=== PATIENT | male | born 1955 | race Hispanic/Latino ===

== ENCOUNTER 2019-01-16 16:12 | Inpatient (IN) | payer OTHER ==
[~2019-01-16] VITALS: Ht 170.2 cm; Wt 63.1 kg
[2019-01-16 16:50] LABS: BASOPHILS % (AUTO) 0.8 % (0.0-5.0); EOSINOPHILS % (AUTO) 3.6 % (0.0-8.0); HEMATOCRIT 40.6 % (42-54); LYMPHOCYTES % (AUTO) 38.5 % (21.0-51.0); MEAN CORPUSCULAR HEMOGLOBIN 32.6 pg (27.0-33.0); MEAN CORPUSCULAR HGB CONC 33.5 g/dL (32.0-36.0); MEAN CORPUSCULAR VOLUME 97.1 fL (79-99); NEUTROPHILS % (AUTO) 51.1 % (40.0-77.0); NUCLEATED RED BLOOD CELLS 0.1 % (0.0-0.19); PLATELET COUNT (AUTO) 124 K/uL (130-400); RED BLOOD CELL COUNT(AUTO) 4.18 MIL/uL (4.50-6.20); RED CELL DISTRIBUTION WIDTH 13.2 % (11.0-15.5); WHITE BLOOD COUNT (AUTO) 8.6 K/uL (4.8-10.8)
[2019-01-16] MEDS ORDERED: ASPIRIN 325 MG TABLET ONE (16:54)
[2019-01-16] MEDS ORDERED: SODIUM CHLORIDE 0.9% 1000ML 1,000 ML IV ONE (16:54)
[2019-01-16 17:02] LABS: CREATININE 1.1 mg/dL (0.5-1.5); POTASSIUM 3.8 mmol/L (3.5-5.1)
[2019-01-16 17:06] LABS: ALBUMIN 4.2 g/dL (3.5-5.0); BILIRUBIN,TOTAL 0.5 mg/dL (0.2-1.0); TOTAL PROTEIN, SERUM 8.4 g/dL (6.0-8.3)
[2019-01-16 17:13] LABS: B-TYPE NATRIURETIC PEPTIDE 31 pg/mL (0-100)
[2019-01-16 17:43] LABS: APPEARANCE,URINE Clear (CLEAR); BILIRUBIN,URINE Negative (NEGATIVE); COLOR,URINE Dark Yellow (YELLOW); GLUCOSE, URINE (UA) Negative (NEGATIVE); KETONES,URINE Trace mg/dL (NEGATIVE); LEUKOCYTE ESTERASE ,URINE Negative (NEGATIVE); NITRATE,URINE Negative (NEGATIVE); OCCULT BLOOD,URINE Negative (NEGATIVE); PROTEIN,URINE Trace mg/dL (NEGATIVE)
[2019-01-16 17:56] LABS: BACTERIA,URINE Few /HPF (None Seen); MUCUS,URINE Few LPF (None Seen); RBC,URINE 0-1 /HPF (0-1); SQUAMOUS EPITHELIAL CELL,UR Rare /HPF (0-2)
[2019-01-16] MEDS ORDERED: HYDRALAZINE HCL 20 MG/ML VIAL IV PRN (19:45)
[2019-01-16] MEDS ORDERED: ACETAMINOPHEN 325 MG TAB PO PRN ×2 (19:45)
[2019-01-16] MEDS ORDERED: MORPHINE SULFATE 2 MG/ML 1ML SYG IV PRN (19:45)
[2019-01-16] MEDS ORDERED: MORPHINE SULFATE 4 MG/1ML SYG IV PRN (19:45)
[2019-01-16] MEDS ORDERED: ONDANSETRON HCL 4 MG/2 ML VIAL IV PRN (19:45)
[2019-01-16 21:00] VITALS: BP 113/56
[2019-01-16] MEDS: ENOXAPARIN SODIUM 30 MG/0.3 ML SQ SCH (21:00)
[2019-01-16] MEDS ORDERED: GLIM4TAB3 PO (21:05)
[2019-01-16] MEDS ORDERED: CHOL100018 PO (21:05)
[2019-01-16] MEDS ORDERED: LISI2.5T2 PO (21:07)
[2019-01-16] MEDS ORDERED: ATOR20TA65 PO (21:07)
[2019-01-16 23:40] LABS: TROPONIN I 0.04 ng/mL (0.00-0.06)
[2019-01-17] VITALS (7 sets, daily range): BP systolic 116–138; BP diastolic 58–74
[2019-01-17 05:07] LABS: TROPONIN I 0.04 ng/mL (0.00-0.06)
[2019-01-17] MEDS: FAMOTIDINE/PF 20 MG/2 ML VIAL IV SCH ×3 (09:00→22:08)
[2019-01-17] MEDS: METOPROLOL TARTRATE 25 MG TAB PO SCH ×3 (09:00→22:08)
[2019-01-17] MEDS: ASPIRIN 325 MG TABLET PO SCH (10:39)
[2019-01-17] MEDS: ATORVASTATIN CALCIUM 20 MG TABLET PO SCH (10:39)
[2019-01-17] MEDS: ENOXAPARIN SODIUM 30 MG/0.3 ML SQ SCH ×2 (11:24→22:15)
[2019-01-17 11:41] LABS: TROPONIN I 0.04 ng/mL (0.00-0.06)
[2019-01-17] MEDS ORDERED: GLUCAGON 1MG KIT 1 MG ML IM PRN (16:00)
[2019-01-17] MEDS ORDERED: DEXTROSE 50%-WATER 50 ML DISP.SYRIN IV PRN (16:00)
[2019-01-17] MEDS: INSULIN HUMULIN R 100 UNIT/ML 3ML SQ SCH ×2 (16:30→21:00)
[2019-01-18 03:05] VITALS: BP 123/68
[2019-01-18 05:47] LABS: BASOPHILS % (AUTO) 0.6 % (0.0-5.0); EOSINOPHILS % (AUTO) 3.9 % (0.0-8.0); HEMATOCRIT 36.7 % (42-54); LYMPHOCYTES % (AUTO) 36.1 % (21.0-51.0); MEAN CORPUSCULAR HEMOGLOBIN 33.1 pg (27.0-33.0); MEAN CORPUSCULAR VOLUME 97.3 fL (79-99); MONOCYTES % (AUTO) 6.8 % (3.0-13.0); NEUTROPHILS % (AUTO) 52.6 % (40.0-77.0); NUCLEATED RED BLOOD CELLS 0.1 % (0.0-0.19); PLATELET COUNT (AUTO) 113 K/uL (130-400); RED BLOOD CELL COUNT(AUTO) 3.77 MIL/uL (4.50-6.20); WHITE BLOOD COUNT (AUTO) 7.2 K/uL (4.8-10.8)
[2019-01-18 05:57] LABS: CREATININE 1.1 mg/dL (0.5-1.5); POTASSIUM 4.8 mmol/L (3.5-5.1)
[2019-01-18] MEDS: INSULIN HUMULIN R 100 UNIT/ML 3ML SQ SCH ×4 (07:30→21:00)
[2019-01-18 08:00] VITALS: BP 132/73
[2019-01-18] MEDS: METOPROLOL TARTRATE 25 MG TAB PO SCH (08:30)
[2019-01-18] MEDS: ASPIRIN 325 MG TABLET PO SCH (08:38)
[2019-01-18] MEDS: ATORVASTATIN CALCIUM 20 MG TABLET PO SCH (08:39)
[2019-01-18] MEDS: FAMOTIDINE/PF 20 MG/2 ML VIAL IV SCH ×2 (08:40→22:03)
[2019-01-18 11:28] VITALS: BP 111/62
[2019-01-18] MEDS ORDERED: DICL100G27 TP (11:33)
[2019-01-18] MEDS ORDERED: METF-446 PO (11:33)
[2019-01-18] MEDS ORDERED: NAPR-1023 PO (11:33)
[2019-01-18] MEDS ORDERED: CYAN100084 PO (11:33)
[2019-01-18 16:00] VITALS: BP 130/71
[2019-01-18 21:32] VITALS: BP 125/65
[2019-01-18 23:00] VITALS: BP 132/68
[2019-01-19 03:00] VITALS: BP 119/62
[2019-01-19 06:22] LABS: BASOPHILS % (AUTO) 0.7 % (0.0-5.0); EOSINOPHILS % (AUTO) 3.6 % (0.0-8.0); HEMATOCRIT 37.7 % (42-54); LYMPHOCYTES % (AUTO) 33.6 % (21.0-51.0); MEAN CORPUSCULAR HEMOGLOBIN 32.1 pg (27.0-33.0); MEAN CORPUSCULAR HGB CONC 33.3 g/dL (32.0-36.0); MEAN CORPUSCULAR VOLUME 96.4 fL (79-99); MONOCYTES % (AUTO) 6.5 % (3.0-13.0); NEUTROPHILS % (AUTO) 55.6 % (40.0-77.0); PLATELET COUNT (AUTO) 128 K/uL (130-400); RED BLOOD CELL COUNT(AUTO) 3.92 MIL/uL (4.50-6.20); WHITE BLOOD COUNT (AUTO) 7.2 K/uL (4.8-10.8)
[2019-01-19 06:32] LABS: CREATININE 1.1 mg/dL (0.5-1.5); POTASSIUM 4.2 mmol/L (3.5-5.1)
[2019-01-19] MEDS: INSULIN HUMULIN R 100 UNIT/ML 3ML SQ SCH ×4 (07:30→21:19)
[2019-01-19 08:00] VITALS: BP 127/67
--- NOTE | 2019-01-19 08:08 | NUR ---
cm note pt resides athome with spouse, independent with ambulation and adls. no dme. dc plan is back to [place] home setting [place]. no dc needs. Addendum: 01/19/19 at 0837 by CONNIE GONZALEZ CM Amended: Links added.
[2019-01-19] MEDS: ENOXAPARIN SODIUM 30 MG/0.3 ML SQ SCH (08:38)
[2019-01-19] MEDS: ASPIRIN 325 MG TABLET PO SCH (08:39)
[2019-01-19] MEDS: FAMOTIDINE/PF 20 MG/2 ML VIAL IV SCH ×2 (08:39→20:04)
[2019-01-19] MEDS: ATORVASTATIN CALCIUM 20 MG TABLET PO SCH ×2 (08:39→20:04)
[2019-01-19] MEDS ORDERED: **HM** DICLOFENAC GEL TP PRN (09:00)
[2019-01-19 11:59] VITALS: BP 113/61
[2019-01-19 16:00] VITALS: BP 123/74
--- NOTE | 2019-01-19 18:20 | NUR ---
Recieved report from [facility] pt awake and alert, Debridement Open fx of Right hand 2,3,4th digit with skin graft right forearm done by Dr Garcia. Wound/Grafts to be left alone. /u with Dr. Garcia in 1 week. Addendum: 01/20/19 at 2004 by KENYON BALDWIN RN RN Error wrong pt
--- NOTE | 2019-01-19 18:35 | NUR ---
patient back from OR s/p debridement open fracture right hand 2,3,4 digit with skin graft. Alert and awake. Skin graft taken from right forearm. wound in place with Dermabond and sutures. Patient states moderate pain to right hand. IV patent. patient in sling with right arm elevated with pillow. Call light placed within reach, bed placed in lowest position and reoriented to room. Addendum: 01/20/19 at 2002 by KENYON BALDWIN RN RN ERROR WRONG PT
[2019-01-19 19:00] VITALS: BP 144/67
--- NOTE | 2019-01-19 20:05 | NUR ---
MEDS PT VISITING WITH FAMILY. DUE MEDS ADMINISTERED, TOLERATED WELL. INSTRUCTED TO BE NPO POST MIDNIGHT FOR STRESS TEST IN AM. PT VERBALIZES UNDERSTANDING. PT FURTHER CLAIMS THAT HE JUST TOOK A SHOWER IN THE EARLY EVENING BEFORE CHANGE OF SHIFT. CALL LIGHT WITHIN REACH. WILL MONITOR PT.
[2019-01-20] VITALS: BP 122/63
--- NOTE | 2019-01-20 02:00 | NUR ---
ROUNDS PT FAIRLY ASLEEP WITH RESPIRATIONS EVEN AND UNLABORED. NO NOTED DISTRESS. KEPT UNDISTURBED FOR NOW. WILL CONTINUE TO MONITOR. CALL LIGHT WITHIN REACH.
[2019-01-20 04:00] VITALS: BP 115/64
[2019-01-20] MEDS ORDERED: LISINOPRIL 2.5 MG TABLET ONE (05:56)
[2019-01-20] MEDS ORDERED: ASPIRIN 81MG TAB.CHEW ONE (05:57)
--- NOTE | 2019-01-20 06:04 | NUR ---
MEDS AWAKENED PT FOR MEDS. ASA AND LISINOPRIL DOSES ADMINISTERED PER PA ORDER, WITH SIPS OF WATER. KEPT NPO. FOR MORE CARE.
[2019-01-20] MEDS: INSULIN HUMULIN R 100 UNIT/ML 3ML SQ SCH ×4 (06:18→21:14)
[2019-01-20] MEDS: LISINOPRIL 2.5 MG TABLET PO SCH (07:18)
[2019-01-20] MEDS: ASPIRIN 81MG TAB.CHEW PO SCH (07:19)
[2019-01-20 08:00] VITALS: BP 130/68
[2019-01-20] MEDS: FAMOTIDINE/PF 20 MG/2 ML VIAL IV SCH ×2 (09:00→21:03)
[2019-01-20] MEDS: ENOXAPARIN SODIUM 30 MG/0.3 ML SQ SCH (09:00)
[2019-01-20] MEDS ORDERED: REGADENOSON 0.4 MG/5 ML PF SYG IVP SCH (09:30)
--- NOTE | 2019-01-20 11:45 | NUR ---
Pt returned from [facility]
[2019-01-20 12:00] VITALS: BP 124/88
[2019-01-20 16:00] VITALS: BP 134/74
[2019-01-20 19:00] VITALS: BP 140/73
[2019-01-20] MEDS: ATORVASTATIN CALCIUM 20 MG TABLET PO SCH (21:03)
--- NOTE | 2019-01-20 21:05 | NUR ---
MEDS SHIFT ASSESSMENT DONE, PLEASE REFER TO CHART. DUE MEDS ADMINISTERED, TOLERATED WELL. KEPT RESTED AND COMFORTABLE FOR SLEEP. CALL LIGHT WITHIN REACH. WILL MONITOR PT. Addendum: 01/20/19 at 2345 by ALEXEI PATTERSON RN RN Amended: Links added.
--- NOTE | 2019-01-20 23:31 | NUR ---
SECURITY SECURITY IN TO RETURN PT'S MONEY FROM [facility]. MONEY COUNTED AND [id number] SECURITY EXPLAINED TO PT THAT STAFF IS NOT RESPONSIBLE FOR MONEY ONCE IT IS RELEASED TO HIM. PT VERBALIZES UNDERSTANDING. BALL FRINGE MACHINE OPERATOR WITNESSED RETURN FORM.
[2019-01-21] VITALS: BP 114/56
--- NOTE | 2019-01-21 02:00 | NUR ---
ROUNDS PT RESTING WELL, FAIRLY ASLEEP WITH RESPIRATIONS EVEN AND UNLABORED. NO NOTED DISTRESS. KEPT UNDISTURBED FOR NOW. WILL CONTINUE TO MONITOR. CALL LIGHT WITHIN REACH.
[2019-01-21 04:00] VITALS: BP 110/59
[2019-01-21 05:10] LABS: BASOPHILS % (AUTO) 0.7 % (0.0-5.0); EOSINOPHILS % (AUTO) 4.5 % (0.0-8.0); HEMATOCRIT 38.4 % (42-54); LYMPHOCYTES % (AUTO) 31.3 % (21.0-51.0); MEAN CORPUSCULAR HEMOGLOBIN 32.9 pg (27.0-33.0); MEAN CORPUSCULAR HGB CONC 33.7 g/dL (32.0-36.0); MEAN CORPUSCULAR VOLUME 97.6 fL (79-99); MONOCYTES % (AUTO) 8.3 % (3.0-13.0); NEUTROPHILS % (AUTO) 55.2 % (40.0-77.0); NUCLEATED RED BLOOD CELLS 0.1 % (0.0-0.19); PLATELET COUNT (AUTO) 112 K/uL (130-400); RED BLOOD CELL COUNT(AUTO) 3.94 MIL/uL (4.50-6.20); RED CELL DISTRIBUTION WIDTH 13.2 % (11.0-15.5); WHITE BLOOD COUNT (AUTO) 7.5 K/uL (4.8-10.8)
[2019-01-21 05:20] LABS: CREATININE 1.1 mg/dL (0.5-1.5); POTASSIUM 3.7 mmol/L (3.5-5.1)
--- NOTE | 2019-01-21 06:00 | NUR ---
ROUNDS PT RESTING WELL, NO DISTRESS NOTED. NO CONCERNS VERBALIZED. KEPT COMFORTABLE. FOR MORE CARE.
[2019-01-21] MEDS: INSULIN HUMULIN R 100 UNIT/ML 3ML SQ SCH ×2 (06:32→11:55)
[2019-01-21 08:00] VITALS: BP 92/52
[2019-01-21] MEDS: ENOXAPARIN SODIUM 30 MG/0.3 ML SQ SCH (09:00)
[2019-01-21] MEDS: LISINOPRIL 2.5 MG TABLET PO SCH (09:00)
[2019-01-21] MEDS: FAMOTIDINE/PF 20 MG/2 ML VIAL IV SCH (09:24)
[2019-01-21] MEDS: ASPIRIN 81MG TAB.CHEW PO SCH (09:24)
[2019-01-21 12:00] VITALS: BP 127/76
--- NOTE | 2019-01-21 15:50 | NUR ---
PATIENT GIVEN DISCHARGE INSTRUCTIONS AND VERBALIZED UNDERSTANDING , TELEMETRY REMOVED AND MONITOR UNIT NOTIFIED OF PATIENT PENDING D/C , IV REMOVED WITH CATHETER INTACT, PRESSURE HELD THEN SITE DRESSED . NO QUESTIONS OR CONCERNS AT THIS TIME. [facility]UP WITH [facility] AND TO GET AUTHORIZATION FOR FOLLOW-UP WITH CARDIOLOGISTS IN 1-2 WEEKS ( DR GONZALEZ NAME AND OFFICE NUMBER GIVEN TO PATIENT ) PATIENT WALKED TO LOBBY WITH BY SIDE AND LEFT FOR HOME IN PRIVATE CAR.
== END 2019-01-21 15:45 | disposition home or self-care (01) | DRG 311 ==
LOC: EDH 16:12 → OBSVTOIN 19:00 → EDHIP 19:00 → INTOOBSV 19:00 → 3AH 20:25
PROVIDERS: ADMIT Internal Medicine; ATTEND Internal Medicine
DX: I20.8 Other forms of angina pectoris (principal); R06.01 Orthopnea; I10 Essential (primary) hypertension; E11.9 Type 2 diabetes mellitus without complications; R00.1 Bradycardia, unspecified; E78.5 Hyperlipidemia, unspecified; M17.0 Bilateral primary osteoarthritis of knee; Z79.899 Other long term (current) drug therapy; Z87.891 Personal history of nicotine dependence; Z82.49 Family history of ischemic heart disease and other diseases of the circulatory system
CPT/HCPCS: 36415; 71045; 74176; 78452; 80048; 80053; 81001; 82550; 82948; 83605; 83874; 83880; 84484; 85025; 93005; 93017; 93306; 96374; A9500; G0378; J1650; J1815; J2785; J3490; J7030

== ENCOUNTER 2019-02-13 06:53 | Day surgery (SDC) | payer OTHER ==
[2019-02-11 09:44] VITALS: BP 145/70
[2019-02-11 09:52] LABS: BASOPHILS % (AUTO) 0.7 % (0.0-5.0); EOSINOPHILS % (AUTO) 3.2 % (0.0-8.0); HEMATOCRIT 39.9 % (42-54); LYMPHOCYTES % (AUTO) 30.4 % (21.0-51.0); MEAN CORPUSCULAR HEMOGLOBIN 32.3 pg (27.0-33.0); MEAN CORPUSCULAR HGB CONC 32.9 g/dL (32.0-36.0); MEAN CORPUSCULAR VOLUME 98.2 fL (79-99); MONOCYTES % (AUTO) 6.4 % (3.0-13.0); NEUTROPHILS % (AUTO) 59.3 % (40.0-77.0); PLATELET COUNT (AUTO) 122 K/uL (130-400); RED BLOOD CELL COUNT(AUTO) 4.07 MIL/uL (4.50-6.20); RED CELL DISTRIBUTION WIDTH 13.2 % (11.0-15.5); WHITE BLOOD COUNT (AUTO) 7.1 K/uL (4.8-10.8)
[2019-02-11 09:57] LABS: CREATININE 1.1 mg/dL (0.5-1.5); POTASSIUM 4.7 mmol/L (3.5-5.1)
[2019-02-11 10:00] LABS: APPEARANCE,URINE Clear (CLEAR); BILIRUBIN,URINE Negative (NEGATIVE); COLOR,URINE Yellow (YELLOW); GLUCOSE, URINE (UA) >=1000 mg/dL (NEGATIVE); KETONES,URINE Negative (NEGATIVE); LEUKOCYTE ESTERASE ,URINE Negative (NEGATIVE); NITRATE,URINE Negative (NEGATIVE); OCCULT BLOOD,URINE Negative (NEGATIVE); PROTEIN,URINE Negative (NEGATIVE)
[2019-02-11 10:09] LABS: PARTIAL THROMBOPLASTIN TIME 27.3 SEC (26.3-35.5); PROTHROMBIN TIME 10.5 SEC (9.6-11.6)
[2019-02-11 10:21] LABS: BACTERIA,URINE Few /HPF (None Seen); RBC,URINE None Seen /HPF (0-1); SQUAMOUS EPITHELIAL CELL,UR 0-2 /HPF (0-2); WBC,URINE 0-1 /HPF (0-1)
--- NOTE | 2019-02-12 08:30 | NUR ---
LOW PLATELETS SPOKE WITH YVAN ABREU AND INFORMED HIM OF LOW PLT 122. NO NEW ORDERS RECEIVED, OK TO PROCEED WITH PROCEDURE SCHEDULED PER YVAN SILVA.
[~2019-02-13] VITALS: Ht 171.4 cm; Wt 65.0 kg
[2019-02-13] VITALS (8 sets, daily range): BP systolic 124–156; BP diastolic 59–78
[~2019-02-13 06:53] MED LIST: ATOR40TA71 PO; CHOL100018 PO; CYAN100084 PO; GLIM4TAB3 PO
--- NOTE | 2019-02-13 07:03 | NUR ---
PATIENT ARRIVED PATIENT ARRIVED ACCOMPANIED BY SPOUSE. PATIENT AAOX3, RESPIRATIONS UNLABORED, NO C/O PAIN AT THIS TIME. PROCEDURE VERIFIED WITH PATIENT AND PHYSICIAN VERIFIED WITH PATIENT. PATIENT INSTRUCTED TO CHANGE INTO GOWN AND ALL QUESTIONS/CONCERNS ANSWERED.
[2019-02-13] MEDS ORDERED: SODIUM CHLORIDE 0.9% 1000ML 1,000 ML IV SCH ×2 (08:00→09:53)
[2019-02-13] MEDS ORDERED: DIAZEPAM 5 MG TABLET ONE (08:03)
[2019-02-13] MEDS ORDERED: LIDOCAINE HCL 2% 20ML ONE (08:31)
[2019-02-13] MEDS ORDERED: NITROGLYCERIN 5 MG/ML 10 ML VIAL IV ONE (08:31)
[2019-02-13] MEDS ORDERED: IOHEXOL 350 MG/ML 100ML INFUS..BTL IV ONE (08:31)
[2019-02-13] MEDS ORDERED: IOHEXOL-350 50ML VIAL IV ONE (08:34)
--- NOTE | 2019-02-13 08:35 | NUR ---
PATIENT TRANSFERRED PATIENT TAKEN TO STAFFING DIRECTOR VIA BED BY DANIAL ERIC.
[2019-02-13] MEDS ORDERED: ATROPINE SULFATE 0.1 MG/ML 10 ML SYG IVP ONE (08:36)
[2019-02-13] MEDS ORDERED: MIDAZOLAM HCL 1 MG/ML 2ML VIAL ONE (09:16)
[2019-02-13] MEDS ORDERED: FENTANYL CITRATE PF 50 MCG/1 ML 2ML VIAL ONE (09:17)
[2019-02-13] MEDS ORDERED: DEXTROSE 50%-WATER 50 ML DISP.SYRIN IV PRN (10:00)
[2019-02-13] MEDS ORDERED: GLUCAGON 1MG KIT 1 MG ML IM PRN (10:00)
--- NOTE | 2019-02-13 10:15 | NUR ---
PATIENT RETURNED PATIENT BROUGHT BACK FROM REGISTERED REPRESENTATIVE VIA BED BY REBEL HICKS RN. PATIENT AAOX3, RESPIRATIONS UNLABORED. NO C/O PAIN AT THIS TIME. DRESSING TO LEFT GROIN DRY AND INTACT. BILATERAL PEDAL PULSES STRONG. FAMILY AT BEDSIDE.
--- NOTE | 2019-02-13 10:40 | NUR ---
SPOKE WITH DANIAL ALEXANDER PER DANIAL ALEXANDER OK FOR PATIENT TO EAT BECAUSE DR PERALES WILL NOT BE DOING A PROCEDURE ON HIM TODAY. PATIENT MAY NOT GO HOME UNTIL SEEN BY DR PERALES OR DANIAL ALEXANDER.
[2019-02-13] MEDS ORDERED: ACETAMINOPHEN 325 MG TAB PO PRN (11:15)
[2019-02-13] MEDS ORDERED: ACETAMINOPHEN 325 MG TAB ONE (11:15)
[2019-02-13] MEDS ORDERED: DIAZEPAM 5 MG TABLET PO ONE (11:15)
[2019-02-13] MEDS ORDERED: INSULIN HUMULIN R 100 UNIT/ML 3ML SQ SCH (11:30)
--- NOTE | 2019-02-13 13:45 | NUR ---
DR ANGELLA PERALES SPOKE WITH PATIENT AND FAMILY REGARDING SURGERY THAT NEEDS TO BE DONE. PER DR PERALES, HIS OFFICE WILL CALL PATIENT TO SCHEDULE HEART SURGERY NEXT WEEK. PATIENT/SPOUSE VERBALIZED UNDERSTANDING.
--- NOTE | 2019-02-13 14:30 | NUR ---
DISCHARGED DISCHARGE INSTRUCTIONS AND FOLLOW UP APPOINTMENTS EXPLAINED TO PATIENT'S SPOUSE. FEMORAL SITE CARE EXPLAINED AND HANDOUTS PROVIDED. ALL QUESTIONS/CONCERNS ADDRESSED. PATIENT TAKEN TO PRIVATE VEHICLE VIA WHEELCHAIR BY NURSEEFREN.
== END 2019-02-13 14:30 ==
LOC: DAH 06:53
PROVIDERS: ATTEND Internal Medicine Cardiovascular Disease
DX: I25.118 Atherosclerotic heart disease of native coronary artery with other forms of angina pectoris (principal); E11.9 Type 2 diabetes mellitus without complications; E78.5 Hyperlipidemia, unspecified; Z79.84 Long term (current) use of oral hypoglycemic drugs; Z79.899 Other long term (current) drug therapy; Z98.890 Other specified postprocedural states; Z83.3 Family history of diabetes mellitus; Z82.49 Family history of ischemic heart disease and other diseases of the circulatory system; Z79.01 Long term (current) use of anticoagulants
CPT/HCPCS: 36415; 80048; 81001; 82948 ×2; 85025; 85610; 85730; 93460; A4606; C1760; C1894 ×3; J1644; J2250; J3010; J3490 ×2; Q9965; Q9967 ×2; 99156; 99157; J0461

== ENCOUNTER 2019-02-23 07:36 | Inpatient (IN) | payer OTHER | END 2019-02-27 14:17 | disposition home or self-care (01) | LOC: DAHIP 07:36 → 2CH 02-24 04:10 → 2AH 02-26 12:28 → 2CV 13:25 | PROC: 0211099 Bypass Coronary Artery, Two Arteries from Left Internal Mammary with Autologous Venous Tissue, Open Approach (ICD-10-PCS; principal; 2019-02-23 12:41) | DX: I25.10 Atherosclerotic heart disease of native coronary artery without angina pectoris (principal); M19.90 Unspecified osteoarthritis, unspecified site ==

== ENCOUNTER → 2019-07-06 | Outpatient (CLI) | payer OTHER ==
[~2019-07-06] MED LIST changes: -GLIM4TAB3 PO; +GLIM4TAB5 PO
== END | disposition home or self-care (01) ==
LOC: OIH 13:59
PROVIDERS: ATTEND Internal Medicine
DX: M47.817 Spondylosis without myelopathy or radiculopathy, lumbosacral region (principal); M17.12 Unilateral primary osteoarthritis, left knee; M51.26 Other intervertebral disc displacement, lumbar region
CPT/HCPCS: 72100; 73560

== ENCOUNTER 2021-09-06 16:58 | Emergency (ER) | payer OTHER ==
[~2021-09-06] VITALS: Ht 172.7 cm; Wt 69.9 kg
[~2021-09-06 16:58] MED LIST changes: +GLIM4TAB36 PO; -GLIM4TAB5 PO
[2021-09-06] MEDS ORDERED: ASPIRIN 81MG CHEW TAB PO ONE (18:00)
[2021-09-06 18:12] LABS: BASOPHILS % (AUTO) 0.8 % (0.0-5.0); EOSINOPHILS % (AUTO) 3.9 % (0.0-8.0); HEMATOCRIT 46.6 % (42-54); LYMPHOCYTES % (AUTO) 33.8 % (21.0-51.0); MEAN CORPUSCULAR HEMOGLOBIN 31.4 pg (27.0-33.0); MEAN CORPUSCULAR HGB CONC 31.1 g/dL (32.0-36.0); MEAN CORPUSCULAR VOLUME 100.9 fL (79-99); MONOCYTES % (AUTO) 5.1 % (3.0-13.0); NEUTROPHILS % (AUTO) 56.2 % (40.0-77.0); PLATELET COUNT (AUTO) 160 K/uL (130-400); RED BLOOD CELL COUNT(AUTO) 4.62 MIL/uL (4.50-6.20); RED CELL DISTRIBUTION WIDTH 13.1 % (11.0-15.5); WHITE BLOOD COUNT (AUTO) 9.7 K/uL (4.8-10.8)
[2021-09-06 18:39] LABS: CREATININE 1.2 mg/dL (0.5-1.5); POTASSIUM 5.2 mmol/L (3.5-5.1)
[2021-09-06 18:44] LABS: ALBUMIN 4.2 g/dL (3.5-5.0); BILIRUBIN,TOTAL 0.8 mg/dL (0.2-1.0); TOTAL PROTEIN, SERUM 8.3 g/dL (6.0-8.3)
[2021-09-06 18:53] VITALS: BP 121/76
[2021-09-06] MEDS ORDERED: ASPI-1197 PO (19:03)
== END 2021-09-06 19:16 | disposition home or self-care (01) ==
LOC: EDH 16:58
DX: R94.31 Abnormal electrocardiogram [ECG] [EKG] (principal); M54.9 Dorsalgia, unspecified; R79.9 Abnormal finding of blood chemistry, unspecified; E11.9 Type 2 diabetes mellitus without complications; E78.00 Pure hypercholesterolemia, unspecified; Z95.1 Presence of aortocoronary bypass graft; Z79.84 Long term (current) use of oral hypoglycemic drugs; Z79.899 Other long term (current) drug therapy
CPT/HCPCS: 36415; 71045; 80053; 84484; 85025; 93005

== ENCOUNTER → 2022-01-09 | Outpatient (CLI) | payer OTHER ==
[~2022-01-09] VITALS: Ht 172.7 cm; Wt 63.5 kg
[~2022-01-09] MED LIST changes: +ASPI-1197 PO; +REGADENOSON 0.4 MG/5 ML PF SYG IVP SCH
== END | disposition home or self-care (01) ==
LOC: SHCH 08:02
PROVIDERS: ATTEND Internal Medicine Cardiovascular Disease
DX: I25.110 Atherosclerotic heart disease of native coronary artery with unstable angina pectoris (principal); R94.39 Abnormal result of other cardiovascular function study; R94.31 Abnormal electrocardiogram [ECG] [EKG]
CPT/HCPCS: 78452; 93017; 96374; A9500 ×2; J2785

== ENCOUNTER 2022-09-07 19:42 | Emergency (ER) | payer OTHER ==
[~2022-09-07] VITALS: Ht 172.7 cm; Wt 62.1 kg
[~2022-09-07 19:42] MED LIST changes: -REGADENOSON 0.4 MG/5 ML PF SYG IVP SCH
[2022-09-07 21:30] LABS: BASOPHILS % (AUTO) 0.9 % (0.0-5.0); EOSINOPHILS % (AUTO) 13.9 % (0.0-8.0); HEMATOCRIT 40.2 % (42-54); LYMPHOCYTES % (AUTO) 37.2 % (21.0-51.0); MEAN CORPUSCULAR HEMOGLOBIN 32.1 pg (27.0-33.0); MEAN CORPUSCULAR HGB CONC 32.3 g/dL (32.0-36.0); MEAN CORPUSCULAR VOLUME 99.3 fL (79-99); MONOCYTES % (AUTO) 7.7 % (3.0-13.0); PLATELET COUNT (AUTO) 141 K/uL (130-400); RED BLOOD CELL COUNT(AUTO) 4.05 MIL/uL (4.50-6.20); RED CELL DISTRIBUTION WIDTH 13.7 % (11.0-15.5); WHITE BLOOD COUNT (AUTO) 7.8 K/uL (4.8-10.8)
[2022-09-07 21:43] LABS: CREATININE 1.4 mg/dL (0.5-1.5); POTASSIUM 4.1 mmol/L (3.5-5.1)
[2022-09-07 21:54] LABS: ALBUMIN 3.7 g/dL (3.5-5.0); TOTAL PROTEIN, SERUM 7.3 g/dL (6.0-8.3)
[2022-09-07 22:22] LABS: B-TYPE NATRIURETIC PEPTIDE 70 pg/mL (0-100)
[2022-09-07 22:43] VITALS: BP 121/60
== END 2022-09-07 23:38 | disposition home or self-care (01) ==
LOC: EDH 19:42
DX: N28.9 Disorder of kidney and ureter, unspecified (principal); D72.10 Eosinophilia, unspecified; R42 Dizziness and giddiness; I95.1 Orthostatic hypotension; E11.9 Type 2 diabetes mellitus without complications; E78.00 Pure hypercholesterolemia, unspecified; Z95.1 Presence of aortocoronary bypass graft; Z79.899 Other long term (current) drug therapy; Z79.82 Long term (current) use of aspirin
CPT/HCPCS: 36415; 71045; 80053; 82550; 83874; 83880; 84484; 85025; 93005; 99291

== ENCOUNTER 2023-02-25 12:11 | Observation (INO) | payer OTHER ==
[~2023-02-25] VITALS: Ht 172.7 cm; Wt 59.0 kg
[2023-02-25 12:19] VITALS: BP 142/78; PULSE 66; RESP 16; O2SAT 100
[2023-02-25 12:46] LABS: BASOPHILS # (AUTO) 0.04 K/uL (0.00-0.20); BASOPHILS % (AUTO) 0.7 % (0.0-5.0); EOSINOPHILS # (AUTO) 0.22 K/uL (0.00-0.70); EOSINOPHILS % (AUTO) 3.9 % (0.0-8.0); HEMATOCRIT 40.6 % (42-54); IMMATURE GRANULOCYTE ABSOLUTE 0.01 K/uL (0-1); LYMPHOCYTES # (AUTO) 2.4 K/uL (1.0-4.8); LYMPHOCYTES % (AUTO) 41.6 % (21.0-51.0); MEAN CORPUSCULAR HEMOGLOBIN 31.7 pg (27.0-33.0); MEAN CORPUSCULAR HGB CONC 32.5 g/dL (32.0-36.0); MEAN CORPUSCULAR VOLUME 97.6 fL (79-99); MONOCYTES # (AUTO) 0.3 K/uL (0.1-1.0); MONOCYTES % (AUTO) 5.4 % (3.0-13.0); NEUTROPHILS # (AUTO) 2.8 K/uL (1.8-7.7); NEUTROPHILS % (AUTO) 48.2 % (40.0-77.0); PLATELET COUNT (AUTO) 142 K/uL (130-400); RED BLOOD CELL COUNT(AUTO) 4.16 MIL/uL (4.50-6.20); RED CELL DISTRIBUTION WIDTH 13.6 % (11.0-15.5); WHITE BLOOD COUNT (AUTO) 5.7 K/uL (4.8-10.8)
[2023-02-25 13:03] LABS: ALBUMIN 3.7 g/dL (3.5-5.0); CREATININE 1.2 mg/dL (0.5-1.5); POTASSIUM 4.1 mmol/L (3.5-5.1); TOTAL PROTEIN, SERUM 7.6 g/dL (6.0-8.3)
[2023-02-25] MEDS ORDERED: MAGNESIUM 2GM PREMIX 50ML 50 ML IV PRN (17:30)
[2023-02-25] MEDS ORDERED: KCL 20 MEQ ERTAB PO PRN (17:30)
[2023-02-25] MEDS ORDERED: POTASSIUM CHLORIDE 20MEQ/100ML 100 ML IV PRN (17:30)
[2023-02-25] MEDS ORDERED: MORPHINE 2 MG SYG IVP PRN (17:30)
[2023-02-25] MEDS ORDERED: NITROGLYCERIN 0.4 MG SL TAB SL PRN (17:30)
[2023-02-25] MEDS ORDERED: FAMOTIDINE 20MG TAB PO ONE (17:30)
[2023-02-25] MEDS ORDERED: DEXTROSE 50%-WATER 50 ML DISP.SYRIN IV PRN (17:30)
[2023-02-25] MEDS ORDERED: ACETAMINOPHEN 325 MG TAB PO PRN (17:30)
[2023-02-25] MEDS ORDERED: POTASSIUM CHLORIDE 10% ELIXIR 20 MEQ/15 ML UDCUP PO PRN (17:30)
[2023-02-25] MEDS ORDERED: GLUCAGON 1MG KIT 1 MG ML IM PRN (17:30)
[2023-02-25] MEDS ORDERED: METOPROLOL TARTRATE 25 MG TAB PO SCH (21:00)
[2023-02-25] MEDS ORDERED: INSULIN HUMULIN R 100 UNIT/ML 3ML SQ SCH (21:00)
[2023-02-26] MEDS ORDERED: ENOXAPARIN SODIUM 30 MG/0.3 ML SQ SCH (09:00)
== END 2023-02-25 17:56 | disposition left against medical advice (07) ==
LOC: EDH 12:11 → EDHIP 17:17
PROVIDERS: ADMIT Hospitalist; ATTEND Hospitalist
DX: R07.89 Other chest pain (principal); R42 Dizziness and giddiness; I25.10 Atherosclerotic heart disease of native coronary artery without angina pectoris; E11.9 Type 2 diabetes mellitus without complications; G89.29 Other chronic pain; M54.9 Dorsalgia, unspecified; I51.7 Cardiomegaly; E78.00 Pure hypercholesterolemia, unspecified; Z79.82 Long term (current) use of aspirin; Z95.1 Presence of aortocoronary bypass graft; Z79.899 Other long term (current) drug therapy; Z98.890 Other specified postprocedural states
CPT/HCPCS: 99285; 71045; 84484; 80053; 85025; 36415; 93005; G0378

== ENCOUNTER 2023-04-20 09:36 | Emergency (ER) | payer OTHER ==
[~2023-04-20] VITALS: Ht 172.7 cm; Wt 59.0 kg
[2023-04-20 09:37] VITALS: BP 109/64; PULSE 61; RESP 16
[2023-04-20 10:15] LABS: SARS-CoV-2, RNA, NAAT NEGATIVE SARS CoV-2 (NEGATIVE)
[2023-04-20 10:19] LABS: BASOPHILS # (AUTO) 0.04 K/uL (0.00-0.20); BASOPHILS % (AUTO) 0.5 % (0.0-5.0); EOSINOPHILS # (AUTO) 0.07 K/uL (0.00-0.70); EOSINOPHILS % (AUTO) 0.9 % (0.0-8.0); HEMATOCRIT 40.9 % (42-54); IMMATURE GRANULOCYTE ABSOLUTE 0.04 K/uL (0-1); LYMPHOCYTES # (AUTO) 1.4 K/uL (1.0-4.8); LYMPHOCYTES % (AUTO) 18.6 % (21.0-51.0); MEAN CORPUSCULAR HEMOGLOBIN 31.8 pg (27.0-33.0); MEAN CORPUSCULAR HGB CONC 31.8 g/dL (32.0-36.0); MONOCYTES # (AUTO) 0.3 K/uL (0.1-1.0); MONOCYTES % (AUTO) 3.6 % (3.0-13.0); NEUTROPHILS # (AUTO) 5.9 K/uL (1.8-7.7); NEUTROPHILS % (AUTO) 75.9 % (40.0-77.0); PLATELET COUNT (AUTO) 141 K/uL (130-400); RED BLOOD CELL COUNT(AUTO) 4.09 MIL/uL (4.50-6.20); RED CELL DISTRIBUTION WIDTH 12.9 % (11.0-15.5); WHITE BLOOD COUNT (AUTO) 7.8 K/uL (4.8-10.8)
[2023-04-20 10:19] LABS: INFLUENZA TYPE A Negative For Type A (NEGATIVE); INFLUENZA TYPE B Negative For Type B (NEGATIVE)
[2023-04-20 10:30] LABS: ALBUMIN 3.7 g/dL (3.5-5.0); BILIRUBIN,TOTAL 0.7 mg/dL (0.2-1.0)
[2023-04-20 11:07] LABS: APPEARANCE,URINE CLEAR (CLEAR); BILIRUBIN,URINE NEGATIVE (NEGATIVE); COLOR,URINE LIGHT-YELLOW (YELLOW); GLUCOSE, URINE (UA) >=1000 mg/dL (NEGATIVE); KETONES,URINE NEGATIVE (NEGATIVE); LEUKOCYTE ESTERASE ,URINE NEGATIVE Leu/uL (NEGATIVE); NITRATE,URINE NEGATIVE (NEGATIVE); OCCULT BLOOD,URINE NEGATIVE (NEGATIVE); PH,URINE 5.5 (5.0-8.0); PROTEIN,URINE NEGATIVE (NEGATIVE); UROBILINOGEN,URINE 0.2 mg/dL (0.2-1.0)
[2023-04-20 11:08] LABS: ADD UA MICROSCOPIC YES
[2023-04-20 11:09] LABS: RBC,URINE 0-1 /HPF (0-1); WBC,URINE 0-1 /HPF (0-1)
[2023-04-20] MEDS ORDERED: ONDA4TAB10 PO (13:40)
[2023-04-26] MEDS ORDERED: ATOR20TA65 PO (18:40)
[2023-04-26] MEDS ORDERED: EMPA25TA PO (18:40)
[2023-04-26] MEDS ORDERED: AMLO-257 PO (18:40)
[2023-04-26] MEDS ORDERED: AEC81 PO (18:40)
[2023-04-26] MEDS ORDERED: VITAMIN B12 1000 MCG PO (18:40)
[2023-04-26] MEDS ORDERED: VITAMIN D3 PO (18:40)
[2023-04-26] MEDS ORDERED: VIT1CAPS47 PO (18:40)
[2023-04-26] MEDS ORDERED: CARV12.511 PO (18:40)
[2023-04-26] MEDS ORDERED: METH-812 PO (18:40)
[2023-04-26] MEDS ORDERED: SACU1TAB7 PO (18:40)
[2023-04-26] MEDS ORDERED: NITR0.4T50 SL (18:40)
[2023-04-26] MEDS ORDERED: METF-446 PO ×2 (18:40)
== END 2023-04-20 14:16 | disposition home or self-care (01) ==
LOC: EDH 09:36
DX: K80.50 Calculus of bile duct without cholangitis or cholecystitis without obstruction (principal); E11.9 Type 2 diabetes mellitus without complications; E78.00 Pure hypercholesterolemia, unspecified; I25.10 Atherosclerotic heart disease of native coronary artery without angina pectoris; Z79.82 Long term (current) use of aspirin; Z95.1 Presence of aortocoronary bypass graft; Z20.822 Contact with and (suspected) exposure to COVID-19
CPT/HCPCS: 99285; 76705; 71045; 87635; 84484; 80053; 83690; 85025; 87804 ×2; 81001; 36415; 93005; C9803

== ENCOUNTER 2023-04-30 05:37 | Day surgery (SDC) | payer OTHER ==
[2023-04-25 15:34] VITALS: BP 121/59; PULSE 61; RESP 18
[2023-04-25 15:37] LABS: BASOPHILS # (AUTO) 0.07 K/uL (0.00-0.20); BASOPHILS % (AUTO) 0.8 % (0.0-5.0); EOSINOPHILS # (AUTO) 0.48 K/uL (0.00-0.70); EOSINOPHILS % (AUTO) 5.3 % (0.0-8.0); HEMATOCRIT 44.1 % (42-54); IMMATURE GRANULOCYTE ABSOLUTE 0.02 K/uL (0-1); LYMPHOCYTES # (AUTO) 3.2 K/uL (1.0-4.8); LYMPHOCYTES % (AUTO) 35.1 % (21.0-51.0); MEAN CORPUSCULAR HEMOGLOBIN 32.2 pg (27.0-33.0); MEAN CORPUSCULAR HGB CONC 32.2 g/dL (32.0-36.0); MONOCYTES # (AUTO) 0.5 K/uL (0.1-1.0); MONOCYTES % (AUTO) 5.7 % (3.0-13.0); NEUTROPHILS # (AUTO) 4.8 K/uL (1.8-7.7); NEUTROPHILS % (AUTO) 52.9 % (40.0-77.0); PLATELET COUNT (AUTO) 156 K/uL (130-400); RED BLOOD CELL COUNT(AUTO) 4.41 MIL/uL (4.50-6.20); RED CELL DISTRIBUTION WIDTH 13.1 % (11.0-15.5); WHITE BLOOD COUNT (AUTO) 9.1 K/uL (4.8-10.8)
[2023-04-25 15:44] LABS: APPEARANCE,URINE CLEAR (CLEAR); BILIRUBIN,URINE NEGATIVE (NEGATIVE); COLOR,URINE LIGHT-YELLOW (YELLOW); GLUCOSE, URINE (UA) >=1000 mg/dL (NEGATIVE); KETONES,URINE NEGATIVE (NEGATIVE); LEUKOCYTE ESTERASE ,URINE NEGATIVE Leu/uL (NEGATIVE); NITRATE,URINE NEGATIVE (NEGATIVE); OCCULT BLOOD,URINE NEGATIVE (NEGATIVE); PROTEIN,URINE NEGATIVE (NEGATIVE); UROBILINOGEN,URINE 0.2 mg/dL (0.2-1.0)
[2023-04-25 15:45] LABS: ADD UA MICROSCOPIC YES
[2023-04-25 15:46] LABS: MUCUS,URINE RARE LPF (None Seen); RBC,URINE 0-1 /HPF (0-1); WBC,URINE 0-1 /HPF (0-1)
[2023-04-25 15:50] LABS: INR 1.04 (0.85-1.15)
[2023-04-25 15:51] LABS: PARTIAL THROMBOPLASTIN TIME 28.8 SEC (26.3-35.5)
[2023-04-25 15:52] LABS: CREATININE 1.1 mg/dL (0.5-1.5); POTASSIUM 5.4 mmol/L (3.5-5.1)
[2023-04-25 16:06] LABS: B-TYPE NATRIURETIC PEPTIDE 93 pg/mL (0-100)
[~2023-04-30] VITALS: Ht 172.7 cm; Wt 59.0 kg
[~2023-04-30 05:37] MED LIST changes: +AEC81 PO; +AMLO-257 PO; -ASPI-1197 PO; +ATOR20TA65 PO; -ATOR40TA71 PO; +CARV12.511 PO; -CHOL100018 PO; -CYAN100084 PO; +EMPA25TA PO; -GLIM4TAB36 PO; +METF-446 PO; +METH-812 PO; +NITR0.4T50 SL; +SACU1TAB7 PO; +VIT1CAPS47 PO; +VITAMIN B12 1000 MCG PO; +VITAMIN D3 PO
[2023-04-30 06:26] LABS: POTASSIUM 4.3 mmol/L (3.5-5.1)
[2023-04-30] MEDS ORDERED: 0.9%NACL 1000ML 1,000 ML IV ONE (06:28)
[2023-04-30] MEDS ORDERED: LIDOCAINE HCL 400MG/20ML VIAL ONE (07:11)
[2023-04-30] MEDS ORDERED: FENTANYL CITRATE PF 50 MCG/1 ML 2ML VIAL ONE (07:11)
[2023-04-30] MEDS ORDERED: MIDAZOLAM HCL 1 MG/ML 2ML VIAL ONE (07:12)
[2023-04-30] MEDS ORDERED: IOHEXOL 350 MG/ML 100ML INFUS..BTL IV ONE (07:12)
[2023-04-30] MEDS ORDERED: HEPARIN 10,000 UNIT/10ML (1,000 UNIT/ML) VIAL ONE (07:13)
[2023-04-30] MEDS ORDERED: IOHEXOL-350 50ML VIAL IV ONE (07:13)
== END 2023-04-30 07:45 | disposition home or self-care (01) ==
LOC: DAH 05:37
PROVIDERS: ATTEND Internal Medicine Cardiovascular Disease
DX: I25.110 Atherosclerotic heart disease of native coronary artery with unstable angina pectoris (principal); E11.9 Type 2 diabetes mellitus without complications; I11.0 Hypertensive heart disease with heart failure; E78.5 Hyperlipidemia, unspecified; G47.33 Obstructive sleep apnea (adult) (pediatric); I25.5 Ischemic cardiomyopathy; I50.22 Chronic systolic (congestive) heart failure; R42 Dizziness and giddiness; Z53.8 Procedure and treatment not carried out for other reasons; Z82.49 Family history of ischemic heart disease and other diseases of the circulatory system; Z80.9 Family history of malignant neoplasm, unspecified; Z95.1 Presence of aortocoronary bypass graft; Z79.01 Long term (current) use of anticoagulants; Z79.82 Long term (current) use of aspirin; Z79.899 Other long term (current) drug therapy
CPT/HCPCS: 71045; 80048 ×2; 83880; 85025; 85610; 85730; 81001; 36415 ×2; 82948; J3490; J7030; J1644; A4215; A4222; A4221; A4663; A4216; A4606; A4223 ×3; J2250; J3010; Q9967

== ENCOUNTER 2023-06-28 15:08 | Emergency (ER) | payer OTHER ==
[~2023-06-28] VITALS: Ht 172.7 cm; Wt 59.0 kg
[2023-06-28 15:57] LABS: BASOPHILS # (AUTO) 0.05 K/uL (0.00-0.20); BASOPHILS % (AUTO) 0.8 % (0.0-5.0); EOSINOPHILS # (AUTO) 0.16 K/uL (0.00-0.70); EOSINOPHILS % (AUTO) 2.5 % (0.0-8.0); HEMATOCRIT 39.5 % (42-54); IMMATURE GRANULOCYTE ABSOLUTE 0.01 K/uL (0-1); LYMPHOCYTES # (AUTO) 2.1 K/uL (1.0-4.8); LYMPHOCYTES % (AUTO) 31.7 % (21.0-51.0); MEAN CORPUSCULAR HEMOGLOBIN 32.1 pg (27.0-33.0); MEAN CORPUSCULAR HGB CONC 32.2 g/dL (32.0-36.0); MEAN CORPUSCULAR VOLUME 99.7 fL (79-99); MONOCYTES # (AUTO) 0.4 K/uL (0.1-1.0); MONOCYTES % (AUTO) 6.1 % (3.0-13.0); NEUTROPHILS # (AUTO) 3.8 K/uL (1.8-7.7); NEUTROPHILS % (AUTO) 58.7 % (40.0-77.0); PLATELET COUNT (AUTO) 117 K/uL (130-400); RED BLOOD CELL COUNT(AUTO) 3.96 MIL/uL (4.50-6.20); RED CELL DISTRIBUTION WIDTH 13.2 % (11.0-15.5); WHITE BLOOD COUNT (AUTO) 6.5 K/uL (4.8-10.8)
[2023-06-28] MEDS ORDERED: LIDOCAINE HCL 1% 20 ML VIAL ONE (16:02)
[2023-06-28 16:29] LABS: ALBUMIN 3.7 g/dL (3.5-5.0); CREATININE 1.3 mg/dL (0.5-1.5); POTASSIUM 4.8 mmol/L (3.5-5.1); TOTAL PROTEIN, SERUM 7.5 g/dL (6.0-8.3)
[2023-06-28] MEDS ORDERED: LIDOCAINE HCL 1% 20 ML VIAL INJ SCH (16:30)
[2023-06-28 18:52] VITALS: BP 125/70; PULSE 68; RESP 18; O2SAT 98
== END 2023-06-28 19:14 | disposition home or self-care (01) ==
LOC: EDH 15:08
DX: S01.81XA Laceration without foreign body of other part of head, initial encounter (principal); E11.9 Type 2 diabetes mellitus without complications; I25.10 Atherosclerotic heart disease of native coronary artery without angina pectoris; I10 Essential (primary) hypertension; Z79.82 Long term (current) use of aspirin; Z95.1 Presence of aortocoronary bypass graft; W18.39XA Other fall on same level, initial encounter; Y93.89 Activity, other specified; Y92.89 Other specified places as the place of occurrence of the external cause; Y99.8 Other external cause status
CPT/HCPCS: 12013; 36415; 70450; 80053; 84484; 85025; 93005

== ENCOUNTER 2023-07-06 12:32 | Emergency (ER) | payer OTHER ==
[~2023-07-06] VITALS: Ht 172.7 cm; Wt 59.0 kg
[2023-07-06 12:39] VITALS: BP 103/59; PULSE 69; RESP 14
== END 2023-07-06 13:23 | disposition home or self-care (01) ==
LOC: EDH 12:32
DX: S01.91XD Laceration without foreign body of unspecified part of head, subsequent encounter (principal); I25.10 Atherosclerotic heart disease of native coronary artery without angina pectoris; E11.9 Type 2 diabetes mellitus without complications; I10 Essential (primary) hypertension; Z79.82 Long term (current) use of aspirin; Z95.1 Presence of aortocoronary bypass graft; X58.XXXD Exposure to other specified factors, subsequent encounter
CPT/HCPCS: 99281

== ENCOUNTER → 2024-01-17 | Outpatient (CLI) | payer OTHER | LOC: SHCH 13:36 | PROVIDERS: ATTEND Internal Medicine Cardiovascular Disease | DX: I08.3 Combined rheumatic disorders of mitral, aortic and tricuspid valves (principal); I50.9 Heart failure, unspecified; I25.42 Coronary artery dissection; I25.810 Atherosclerosis of coronary artery bypass graft(s) without angina pectoris | CPT/HCPCS: 93306 ==

== ENCOUNTER → 2024-06-26 | Outpatient (CLI) | payer OTHER ==
[~2024-06-26] MED LIST changes: +IOHEXOL 350 MG/ML 100ML INFUS..BTL IV ONE
--- NOTE | 2024-06-26 12:04 | HMCIMG ---
CT CARDIAC ANGIO W/CONT. CCTA HISTORY: Ischemic cardiomyopathy COMPARISON: None TECHNIQUE: Multiple sequential axial images of the chest were obtained along with the CT angiogram of the chest study. Patient was given 100 cc of Omnipaque through intravenous route. FINDINGS: There is no evidence of pulmonary nodule or parenchymal disease. No pleural effusion or pericardial effusion is seen. There is no evidence of pneumothorax. There are normal size mediastinal and hilar lymph nodes. The heart is not enlarged. Degenerative changes of the thoracolumbar spine are present. IMPRESSION: 1. No evidence of pulmonary nodule or effusion is seen. Please see CT angiogram report of coronary arteries.
--- NOTE | 2024-06-29 11:10 | CARDIOLOGY ---
RAD REPORT: [facility] CT ANGIO RADIOLOGY REPORT: CORONARY CT ANGIOGRAPHY DATE: Jun 29, 2024 QUALITY: Excellent CLINICAL HISTORY AND INDICATION: [ coronary artery bypass graft patency ] TECHNIQUE: After obtaining a preliminary evaluation manager image, contrast imaging performed on an [employer] [id number] scanner. A dedicated, limited window, coronary imaging protocol was used, with single breath-hold, retrospective ECG gating, and automated arrhythmia rejection. 100 cc of low osmolar contrast agent: Omnipaque 350 was delivered via a 18-gauge IV catheter in the right antecubital fossa, using a power injector and followed by 60 cc of normal saline bolus as a chaser. Collimated images were reformatted at 0.5 mm intervals, and sent to an offline independent workstation for interpretation, using 3D anatomic reconstructions: Curved multiplanar reconstructions, maximum intensity projections, and multiplanar imaging. No metoprolol was administered prior to scanning due to low baseline heart rate. 0.8 mg SL nitroglycerin was given. CORONARY ARTERY DESCRIPTIONS: The coronary arteries arise in normal position. Left main coronary artery: Normal caliber vessel that bifurcates into the LAD and LCx. No stenosis. Left anterior descending coronary artery: Normal caliber vessel and gives rise to diagonal and septal branches. Left circumflex coronary artery: Normal caliber, nondominant and gives rise to a large OM branch. No stenosis. Right coronary artery: Large, dominant vessel giving rise to the PL and PDA branches. High risk plaque with positive remodeling and spotty calcification in the proximal RCA with <20% stenosis. Recommend aggressive LDL lowering therapy. CORONARY ARTERY BYPASS GRAFT DESCRIPTIONS: Patent GARCIA to LAD. Occluded SVG to OM. However, no stenosis seen in the LCx or OM system. Thoracic Aorta: Normal diameter. Anel Reddy MD Cardiovascular Disease [facility] ANEL REDDY MD Jun 29, 2024 11:10
== END | disposition home or self-care (01) ==
LOC: RAH 10:29
PROVIDERS: ATTEND Internal Medicine Cardiovascular Disease
DX: I25.5 Ischemic cardiomyopathy (principal); M47.815 Spondylosis without myelopathy or radiculopathy, thoracolumbar region; Z95.1 Presence of aortocoronary bypass graft
CPT/HCPCS: 75574; Q9967